=== PATIENT | male | born 1970 | race Caucasian/White ===

== ENCOUNTER 2021-10-06 14:14 | Inpatient (IN) | payer MEDICARE, OTHER ==
[~2021-10-06] VITALS: Ht 172.7 cm; Wt 77.4 kg
[~2021-10-06 14:14] MED LIST: LIDOcaine 2% (20 mg/ml) 5ml cardiac syringe ONE; MAGNESIUM SULFATE 4 MEQ/ML (5gm/10ml) injection ONE; NORepinephrine 1 mg/ml inj IV ONE; albumin (human) 25% 100 ML IV solution IV ONE; aminocaproic acid 250 MG/1 ML inj. ONE; calcium chloride 100 MG/1 ML inj IV ONE; heparin 1,000 units/ml 10ml inj ONE; heparin 10,000 units/1 ML INJ ONE; mannitol 12.5gm/50mL VIAL IV ONE; methylPREDNISolone sod succ 1000mg vial ONE; potassium Cl 2 mEq/ml inj IV ONE; sodium bicarbonate (8.4%) 1 mEq/ml syringe ONE
[2021-10-06 14:50] LABS: BASOPHILS % (AUTO) 0.3 % (0-1); EOSINOPHILS % (AUTO) 0.4 % (0-6); HEMATOCRIT 25.6 % (42.0-52.0); HEMOGLOBIN 8.4 g/dl (14.0-17.9); LYMPHOCYTES # (AUTO) 1.5 X10'3 (1.1-4.8); LYMPHOCYTES % (AUTO) 24.2 % (21-51); MEAN CORPUSCULAR HEMOGLOBIN 30.5 PG (27.0-31.0); MEAN CORPUSCULAR HGB CONC 32.9 g/dL (33.0-36.5); MEAN CORPUSCULAR VOLUME 92.8 FL (78-98); MONOCYTES # (AUTO) 0.9 X10'3 (0-0.9); MONOCYTES % (AUTO) 14.5 % (2-12); NEUTROPHILS # (AUTO) 3.7 X10'3 (1.8-7.7); NEUTROPHILS % (AUTO) 60.6 % (42-75); PLATELET COUNT 164 X10'3 (140-440); RED BLOOD COUNT 2.76 X10'6 (4.70-6.10); RED CELL DISTRIBUTION WIDTH 24.7 % (11.5-14.5); WHITE BLOOD COUNT 6.2 X10'3 (4.5-11.0)
[2021-10-06] MEDS ORDERED: vancomycin/NS 1 GM ADD-VANTAGE 250 ML IV ONE (14:50)
[2021-10-06] MEDS ORDERED: CefTRIAXone 2gm/D5W 50ml BAG 50 ML IV ONE (14:50)
[2021-10-06 15:09] LABS: ALANINE AMINOTRANSFERASE 10 U/L (12-78); ALBUMIN 2.9 G/DL (3.4-5.0); ALBUMIN/GLOBULIN RATIO 0.8 (1.1-1.5); ALKALINE PHOSPHATASE 57 IU/L (46-116); ANION GAP 13 (8-16); ASPARTATE AMINO TRANSFERASE 13 U/L (10-37); BILIRUBIN,TOTAL 0.3 MG/DL (0.1-1.0); BLOOD UREA NITROGEN 6 MG/DL (7-18); BUN/CREATININE RATIO 5.7 (5.4-32.0); CALCIUM 8.2 MG/DL (8.5-10.1); CHLORIDE 109 MMOL/L (99-107); CREATININE 1.06 MG/DL (0.60-1.10); GLUCOSE 83 MG/DL (70-104); MAGNESIUM 1.9 MG/DL (1.5-2.4); SODIUM 146 MMOL/L (135-145); TOTAL CARBON DIOXIDE 23.6 MMOL/L (24-32); TOTAL PROTEIN 6.4 G/DL (6.4-8.2); eGFR 73 ML/MIN
[2021-10-06 15:15] LABS: POTASSIUM 2.6 MMOL/L (3.5-5.1)
[2021-10-06 15:17] LABS: ANISOCYTOSIS 3+; PLATELET ESTIMATE NORMAL
[2021-10-06 15:19] LABS: ELLIPTOCYTES FEW; HYPOCHROMASIA 1+; POLYCHROMASIA FEW; TARGET CELLS FEW
[2021-10-06] MEDS ORDERED: potassium Cl 10 mEq/100mL bag IV ONE (15:25)
[2021-10-06] MEDS ORDERED: potassium Cl 20 mEq SR tablet PO ONE (15:25)
[2021-10-06] MEDS ORDERED: normal saline 1000ML IV soln IV ONE (15:25)
[2021-10-06] MEDS ORDERED: morphine 4 MG/ML inj SYRINge IV ONE ×2 (16:00→19:05)
[2021-10-06 16:46] LABS: CLARITY,URINE CLEAR (Clear); GLUCOSE, URINE NEGATIVE (Neg); KETONES,URINE NEGATIVE (Neg); LEUKOCYTE ESTERASE ,URINE NEGATIVE (Neg); NITRITES, URINE NEGATIVE (Neg); OCCULT BLOOD,URINE NEGATIVE (Neg); PH,URINE 5.5 (4.8-8.0); PROTEIN,URINE NEGATIVE (Neg); UROBILINOGEN,URINE 0.2 E.U/dL (0.2-1.0)
[2021-10-06 16:55] LABS: COLOR,URINE STRAW (Yellow); UA COLLECTION TYPE NON-SPECIFIED
[2021-10-06] MEDS ORDERED: mag hydrox/Alum hydrox/simeth 30ml oral suspension PO PRN (17:00)
[2021-10-06] MEDS ORDERED: magnesium 2GM in 50ml NS 50 ML IV PRN (17:00)
[2021-10-06] MEDS ORDERED: POTASSIUM BICARB 20meq eff tab 20 MEQ TABLET.EFF PO PRN (17:00)
[2021-10-06] MEDS ORDERED: magnesium hydroxide 30ml (MOM) UD suspension PO PRN (17:00)
[2021-10-06] MEDS ORDERED: acetaminophen 325mg tablet PO PRN (17:00)
[2021-10-06] MEDS ORDERED: magnesium Cl slow-release 64mg tablet PO PRN (17:00)
[2021-10-06] MEDS ORDERED: magnesium 4gm in 100ml NS 100 ML IV PRN (17:00)
[2021-10-06] MEDS ORDERED: ondansetron/PF 4mg/2ml inj IV PRN (17:00)
[2021-10-06] MEDS ORDERED: VANCOmycin 2,000MG in NS 500ml IV soln IV ONE (17:30)
--- NOTE | 2021-10-06 17:45 | NUR ---
PATIENT IS AWAKE, ALERT AND ORIENTEDX4. ON ROOM AIR, NO FORM OF DISTRESS NOTED. SR/SB ON MONITOR, BP IS STABLE. ADMITTED WITH ENDOCARDITIS. LACTATE 5, AND TRENDING DOWN. BL/URINE CX ALL SENT. TOOK MULTIPLE ATTEMPTS WITH SEVERAL STAFF MEMBERS TO PLACE IV ACCESS ON THIS PATIENT. HE NOW HAS 2 WORKING IVs. NS BOLUS/IV ABX/K+ ALL INFUSING ORDERED. MEDICATED FOR GENERALIZED PAIN ORDERED (2MG MORPHINE). MONTORING ONGOING
[2021-10-06] MEDS: potassium CL 10mEq/100ml bag 100 ML IV PRN ×3 (17:50→20:02)
[2021-10-06 18:19] LABS: POTASSIUM 3.3 MMOL/L (3.5-5.1)
[2021-10-06] MEDS ORDERED: haloperidol lactate 5mg/ml inj IM PRN (18:20)
[2021-10-06] MEDS ORDERED: dextrose 50%-water 50ml dispensing syringe IV PRN (18:20)
[2021-10-06] MEDS ORDERED: LORazepam 2 mg/ml vial IV PRN (18:20)
[2021-10-06] MEDS ORDERED: haloperidol 5mg tablet PO PRN (18:20)
[2021-10-06] MEDS: K and/or MAG REPLACEMENT MC SCH (20:00)
[2021-10-06] MEDS ORDERED: nitroGLYCERIN 1gm ointment UD TP PRN (20:15)
[2021-10-06] MEDS: enoxaparin 30mg/0.3ml syringe SQ SCH (20:45)
[2021-10-06] MEDS: docusate sod 100mg capsule PO SCH (20:50)
[2021-10-06] MEDS: thiamine 100mg/ml 2ml inj. IV SCH (21:16)
[2021-10-07] VITALS (9 sets, daily range): BP systolic 124–156; BP diastolic 67–95
--- NOTE | 2021-10-07 02:24 | NUR ---
Pt complaining of chest pain 10/[address] Acosta she ordered 2mg morphine.
[2021-10-07] MEDS: morphine 2 MG/ML inj. syringe IV PRN ×5 (02:58→23:07)
--- NOTE | 2021-10-07 03:02 | NUR ---
Spoke with patient and he wants to be full code as the order states. He does not want to be DNR as the Dr's note states.
[2021-10-07] MEDS: POTASSIUM BICARB 20meq eff tab 20 MEQ TABLET.EFF PO PRN (03:24)
--- NOTE | 2021-10-07 03:30 | NUR ---
Pt HR dropping into the high 30's spoke with medical charge entry specialist Stacy and she suggested we wipe off the Nitro-BID BP 128/95. HR is now up in the 40's and 50's.
[2021-10-07] MEDS ORDERED: vancomycin/NS 1 GM ADD-VANTAGE 250 ML IV SCH (04:00)
--- NOTE | 2021-10-07 05:14 | NUR ---
Notified Dr. Acosta that the patient's HR dropping as low as 37 and trending mid40's to 60's. No new orders at this time.
--- NOTE | 2021-10-07 06:32 | NUR ---
Problems reprioritized. Patient report given, questions answered & plan of care reviewed with JAIME Sher.
--- NOTE | 2021-10-07 07:01 | NUR ---
Patient in room PCU 3014. I have received report from Daja and had the opportunity to ask questions and assume patient care.
[2021-10-07 07:14] LABS: BASOPHILS % (AUTO) 0.7 % (0-1); EOSINOPHILS # (AUTO) 0.1 X10'3 (0-0.9); EOSINOPHILS % (AUTO) 1.7 % (0-6); HEMATOCRIT 29.4 % (42.0-52.0); HEMOGLOBIN 9.5 g/dl (14.0-17.9); LYMPHOCYTES % (AUTO) 41.9 % (21-51); MEAN CORPUSCULAR HEMOGLOBIN 30.4 PG (27.0-31.0); MEAN CORPUSCULAR HGB CONC 32.1 g/dL (33.0-36.5); MEAN CORPUSCULAR VOLUME 94.8 FL (78-98); MEAN PLATELET VOLUME 9.5 FL (7.4-10.4); MONOCYTES # (AUTO) 1.3 X10'3 (0-0.9); NEUTROPHILS # (AUTO) 2.7 X10'3 (1.8-7.7); NEUTROPHILS % (AUTO) 37.7 % (42-75); PLATELET COUNT 169 X10'3 (140-440); RED BLOOD COUNT 3.11 X10'6 (4.70-6.10); RED CELL DISTRIBUTION WIDTH 25.3 % (11.5-14.5); WHITE BLOOD COUNT 7.2 X10'3 (4.5-11.0)
[2021-10-07 07:42] LABS: ANION GAP 11 (8-16); BLOOD UREA NITROGEN 4 MG/DL (7-18); BUN/CREATININE RATIO 4.2 (5.4-32.0); CHLORIDE 114 MMOL/L (99-107); CREATININE 0.96 MG/DL (0.60-1.10); GLUCOSE 81 MG/DL (70-104); POTASSIUM 3.6 MMOL/L (3.5-5.1); SODIUM 149 MMOL/L (135-145); TOTAL CARBON DIOXIDE 24.5 MMOL/L (24-32)
[2021-10-07 07:43] LABS: ALBUMIN 2.8 G/DL (3.4-5.0); CALCIUM 8.1 MG/DL (8.5-10.1); eGFR 82 ML/MIN
[2021-10-07] MEDS: K and/or MAG REPLACEMENT MC SCH ×2 (08:00→18:54)
[2021-10-07] MEDS: CefTRIAXone 2gm/D5W 50ml BAG 50 ML IV SCH (08:21)
[2021-10-07] MEDS: enoxaparin 30mg/0.3ml syringe SQ SCH ×2 (08:22→19:05)
[2021-10-07] MEDS: thiamine 100mg/ml 2ml inj. IV SCH ×3 (08:23→23:07)
[2021-10-07] MEDS: docusate sod 100mg capsule PO SCH ×2 (08:24→19:05)
[2021-10-07 08:41] LABS: TOTAL CELLS COUNTED 100
--- NOTE | 2021-10-07 08:41 | NUR ---
PAGER ID: [phone] MESSAGE: JAIME Sher, [facility], [id number], Re: [phone], Juan Manuel, pt does not want to be DNR, wants to be Full Code, thank you
[2021-10-07 08:43] LABS: ANISOCYTOSIS 3+; PLATELET ESTIMATE NORMAL; SMUDGE CELLS 1+
[2021-10-07 08:45] LABS: HYPOCHROMASIA 1+; TARGET CELLS 1+
[2021-10-07] MEDS: folic acid 1mg/0.2ml inj IV SCH ×2 (10:04→14:49)
[2021-10-07] MEDS ORDERED: NO HOME MEDS (10:13)
[2021-10-07] MEDS ORDERED: iohexol 350MG/ML 100ml bottle IV ONE (12:23)
[2021-10-07 12:31] LABS: URINE AMPHETAMINE SCREEN NEGATIVE (Neg); URINE BARBITUATE SCREEN NEGATIVE (Neg); URINE BENZODIAZEPINES SCREEN POSITIVE (Neg); URINE CANNABINOID SCREEN NEGATIVE (Neg); URINE COCAINE SCREEN NEGATIVE (Neg); URINE METHADONE SCREEN NEGATIVE (Neg); URINE OPIATE SCREEN POSITIVE (Neg); URINE PHENCYCLIDINE SCREEN NEGATIVE (Neg)
[2021-10-07] MEDS: vancomycin/NS 1 GM ADD-VANTAGE 250 ML IV SCH (17:00)
--- NOTE | 2021-10-07 18:29 | NUR ---
Pt had CT of chest, abdomen, pelvis with contrast. Tolerated heart healthy diet. Received morphine 2 mg IV x2. 2D Echo done. Problems reprioritized. Patient report given, questions answered & plan of care reviewed with JAIME Farnsworth.
[2021-10-08 02:00] VITALS: BP 146/63
[2021-10-08] MEDS ORDERED: VANCOMYCIN LEVEL IV ONE ×2 (03:30→15:30)
[2021-10-08] MEDS: morphine 2 MG/ML inj. syringe IV PRN ×5 (04:04→21:30)
[2021-10-08] MEDS: vancomycin/NS 1 GM ADD-VANTAGE 250 ML IV SCH ×2 (04:32→16:12)
[2021-10-08 06:00] VITALS: BP 148/82
--- NOTE | 2021-10-08 06:46 | NUR ---
Problems reprioritized. Patient report given, questions answered & plan of care reviewed with JAIME Sher.
[2021-10-08 07:21] LABS: BASOPHILS # (AUTO) 0.1 X10'3 (0-0.2); BASOPHILS % (AUTO) 0.7 % (0-1); EOSINOPHILS # (AUTO) 0.2 X10'3 (0-0.9); EOSINOPHILS % (AUTO) 2.4 % (0-6); HEMATOCRIT 27.1 % (42.0-52.0); HEMOGLOBIN 8.8 g/dl (14.0-17.9); LYMPHOCYTES # (AUTO) 2.7 X10'3 (1.1-4.8); LYMPHOCYTES % (AUTO) 34.2 % (21-51); MEAN CORPUSCULAR HEMOGLOBIN 30.4 PG (27.0-31.0); MEAN CORPUSCULAR HGB CONC 32.6 g/dL (33.0-36.5); MEAN CORPUSCULAR VOLUME 93.4 FL (78-98); MEAN PLATELET VOLUME 9.7 FL (7.4-10.4); MONOCYTES # (AUTO) 1.4 X10'3 (0-0.9); MONOCYTES % (AUTO) 17.7 % (2-12); NEUTROPHILS # (AUTO) 3.5 X10'3 (1.8-7.7); PLATELET COUNT 189 X10'3 (140-440); RED CELL DISTRIBUTION WIDTH 25.3 % (11.5-14.5); WHITE BLOOD COUNT 7.9 X10'3 (4.5-11.0)
[2021-10-08] MEDS: K and/or MAG REPLACEMENT MC SCH ×2 (08:00→20:00)
[2021-10-08 08:01] LABS: ALBUMIN 2.5 G/DL (3.4-5.0); ANION GAP 11 (8-16); BLOOD UREA NITROGEN 5 MG/DL (7-18); BUN/CREATININE RATIO 5.1 (5.4-32.0); CHLORIDE 110 MMOL/L (99-107); CREATININE 0.98 MG/DL (0.60-1.10); GLUCOSE 102 MG/DL (70-104); POTASSIUM 3.3 MMOL/L (3.5-5.1); SODIUM 146 MMOL/L (135-145); TOTAL CARBON DIOXIDE 25.3 MMOL/L (24-32); eGFR 80 ML/MIN
[2021-10-08] MEDS: thiamine 100mg/ml 2ml inj. IV SCH ×3 (08:22→20:03)
[2021-10-08] MEDS: enoxaparin 30mg/0.3ml syringe SQ SCH ×2 (08:22→20:04)
[2021-10-08] MEDS: docusate sod 100mg capsule PO SCH ×2 (08:23→20:00)
[2021-10-08] MEDS: CefTRIAXone 2gm/D5W 50ml BAG 50 ML IV SCH (09:16)
[2021-10-08 10:17] LABS: ANISOCYTOSIS 3+; PLATELET ESTIMATE NORMAL
[2021-10-08 10:18] LABS: ELLIPTOCYTES FEW; TARGET CELLS 1+
[2021-10-08 10:51] VITALS: BP 141/54
[2021-10-08] MEDS: POTASSIUM BICARB 20meq eff tab 20 MEQ TABLET.EFF PO PRN ×3 (11:21→20:04)
--- NOTE | 2021-10-08 17:45 | NUR ---
Pt began going through withdrawals, ativan 1mg IV given x1, ativan 2 mg IV given x1. Pt having anxiety, restlessness, headache, nausea, itching. Pt received morphine 2 mg IV x 3 today, for chronic chest pain, pt baseline pain level 5-6/10. Able to get pain to 5/10 and 6/10 today.
[2021-10-08 18:00] VITALS: BP 148/85
[2021-10-08] MEDS ORDERED: LORazepam 2 mg/ml vial IV PRN (18:20)
--- NOTE | 2021-10-08 19:00 | NUR ---
Problems reprioritized. Patient report given, questions answered & plan of care reviewed with JAIME Farnsworth.
[2021-10-08] MEDS: LORazepam 1 MG tablet PO PRN ×2 (20:03→21:29)
[2021-10-08 21:28] VITALS: BP 132/73
--- NOTE | 2021-10-08 21:37 | NUR ---
Pt complaining of 8/10 pain and was complaining of agitation. Pt fell asleep while I was administering the morphine. I will be holding the Ativan right now since patient has no tremors and is not visibly agitated and is resting with eyes closed with light on Pt respiration are 18 at 99% O2 saturation on RA
[2021-10-08 22:00] VITALS: BP 147/85
[2021-10-09] VITALS (8 sets, daily range): BP systolic 101–157; BP diastolic 55–87
[2021-10-09] MEDS: vancomycin/NS 1 GM ADD-VANTAGE 250 ML IV SCH ×2 (03:52→15:57)
[2021-10-09] MEDS: morphine 2 MG/ML inj. syringe IV PRN ×5 (03:52→22:58)
[2021-10-09] MEDS: LORazepam 1 MG tablet PO PRN ×5 (04:51→23:42)
--- NOTE | 2021-10-09 06:27 | NUR ---
Problems reprioritized. Patient report given, questions answered & plan of care reviewed with JAIME Pablo.
[2021-10-09 06:46] LABS: BASOPHILS % (AUTO) 0.6 % (0-1); EOSINOPHILS # (AUTO) 0.2 X10'3 (0-0.9); EOSINOPHILS % (AUTO) 3.1 % (0-6); HEMATOCRIT 26.6 % (42.0-52.0); HEMOGLOBIN 8.6 g/dl (14.0-17.9); LYMPHOCYTES # (AUTO) 2.4 X10'3 (1.1-4.8); LYMPHOCYTES % (AUTO) 29.9 % (21-51); MEAN CORPUSCULAR HEMOGLOBIN 30.4 PG (27.0-31.0); MEAN CORPUSCULAR HGB CONC 32.5 g/dL (33.0-36.5); MEAN CORPUSCULAR VOLUME 93.5 FL (78-98); MEAN PLATELET VOLUME 10.4 FL (7.4-10.4); MONOCYTES # (AUTO) 1.4 X10'3 (0-0.9); MONOCYTES % (AUTO) 17.8 % (2-12); NEUTROPHILS # (AUTO) 3.9 X10'3 (1.8-7.7); NEUTROPHILS % (AUTO) 48.6 % (42-75); PLATELET COUNT 202 X10'3 (140-440); RED BLOOD COUNT 2.84 X10'6 (4.70-6.10); RED CELL DISTRIBUTION WIDTH 24.5 % (11.5-14.5); WHITE BLOOD COUNT 7.9 X10'3 (4.5-11.0)
[2021-10-09 07:07] LABS: ALBUMIN 2.5 G/DL (3.4-5.0); ANION GAP 8 (8-16); BLOOD UREA NITROGEN 6 MG/DL (7-18); BUN/CREATININE RATIO 7.1 (5.4-32.0); CALCIUM 7.9 MG/DL (8.5-10.1); CHLORIDE 108 MMOL/L (99-107); CREATININE 0.84 MG/DL (0.60-1.10); GLUCOSE 121 MG/DL (70-104); POTASSIUM 3.6 MMOL/L (3.5-5.1); SODIUM 142 MMOL/L (135-145); TOTAL CARBON DIOXIDE 26.4 MMOL/L (24-32); eGFR > 90 ML/MIN
[2021-10-09] MEDS: K and/or MAG REPLACEMENT MC SCH ×2 (07:13→19:08)
[2021-10-09] MEDS: enoxaparin 30mg/0.3ml syringe SQ SCH ×2 (09:40→20:22)
[2021-10-09] MEDS: thiamine 100mg/ml 2ml inj. IV SCH ×2 (09:40→13:51)
[2021-10-09] MEDS: folic acid 1mg/0.2ml inj IV SCH (09:40)
[2021-10-09] MEDS: diphenhydrAMINE 25mg capsule PO PRN ×2 (09:41→17:13)
[2021-10-09] MEDS: docusate sod 100mg capsule PO SCH ×2 (09:41→20:22)
[2021-10-09] MEDS: CefTRIAXone 2gm/D5W 50ml BAG 50 ML IV SCH (09:47)
[2021-10-09 10:46] LABS: PRE OP PARTIAL THROMB. TIME 28 SECONDS (22-32)
--- NOTE | 2021-10-09 18:39 | NUR ---
Patient in room PCU 3014B. I have received report from JAIME Pablo and had the opportunity to ask questions and assume patient care.
--- NOTE | 2021-10-09 18:57 | NUR ---
Problems reprioritized. Patient report given, questions answered & plan of care reviewed with JAIME HAGEN.
[2021-10-10 02:00] VITALS: BP 116/65
[2021-10-10] MEDS: LORazepam 1 MG tablet PO PRN ×3 (03:41→15:04)
[2021-10-10] MEDS: morphine 2 MG/ML inj. syringe IV PRN ×2 (03:41→07:50)
[2021-10-10] MEDS: vancomycin/NS 1 GM ADD-VANTAGE 250 ML IV SCH ×2 (03:42→16:27)
[2021-10-10] MEDS: diphenhydrAMINE 25mg capsule PO PRN (03:46)
[2021-10-10 06:25] LABS: BASOPHILS # (AUTO) 0.1 X10'3 (0-0.2); EOSINOPHILS # (AUTO) 0.3 X10'3 (0-0.9); HEMATOCRIT 28.1 % (42.0-52.0); HEMOGLOBIN 9.1 g/dl (14.0-17.9); LYMPHOCYTES # (AUTO) 2.3 X10'3 (1.1-4.8); LYMPHOCYTES % (AUTO) 31.9 % (21-51); MEAN CORPUSCULAR HEMOGLOBIN 30.3 PG (27.0-31.0); MEAN CORPUSCULAR HGB CONC 32.2 g/dL (33.0-36.5); MEAN PLATELET VOLUME 10.2 FL (7.4-10.4); MONOCYTES # (AUTO) 1.6 X10'3 (0-0.9); MONOCYTES % (AUTO) 22.4 % (2-12); NEUTROPHILS # (AUTO) 2.9 X10'3 (1.8-7.7); NEUTROPHILS % (AUTO) 40.7 % (42-75); PLATELET COUNT 214 X10'3 (140-440); RED BLOOD COUNT 2.99 X10'6 (4.70-6.10); RED CELL DISTRIBUTION WIDTH 24.9 % (11.5-14.5); WHITE BLOOD COUNT 7.2 X10'3 (4.5-11.0)
[2021-10-10 06:41] LABS: ALBUMIN 2.6 G/DL (3.4-5.0); ANION GAP 10 (8-16); BLOOD UREA NITROGEN 6 MG/DL (7-18); BUN/CREATININE RATIO 6.5 (5.4-32.0); CALCIUM 7.8 MG/DL (8.5-10.1); CHLORIDE 106 MMOL/L (99-107); CREATININE 0.92 MG/DL (0.60-1.10); GLUCOSE 120 MG/DL (70-104); POTASSIUM 3.4 MMOL/L (3.5-5.1); SODIUM 141 MMOL/L (135-145); TOTAL CARBON DIOXIDE 25.5 MMOL/L (24-32); eGFR 86 ML/MIN
--- NOTE | 2021-10-10 06:45 | NUR ---
Problems reprioritized. Patient report given, questions answered & plan of care reviewed with JAIME Mcadams.
[2021-10-10 07:00] VITALS: BP 121/71
[2021-10-10] MEDS ORDERED: magnesium Cl slow-release 64mg tablet PO PRN (07:40)
[2021-10-10] MEDS ORDERED: magnesium 4gm in 100ml NS 100 ML IV PRN (07:40)
[2021-10-10] MEDS ORDERED: potassium CL 10mEq/100ml bag 100 ML IV PRN (07:40)
[2021-10-10] MEDS ORDERED: POTASSIUM BICARB 20meq eff tab 20 MEQ TABLET.EFF PO PRN (07:40)
[2021-10-10] MEDS ORDERED: magnesium 2GM in 50ml NS 50 ML IV PRN (07:40)
[2021-10-10] MEDS: CefTRIAXone 2gm/D5W 50ml BAG 50 ML IV SCH (07:48)
[2021-10-10] MEDS: docusate sod 100mg capsule PO SCH ×2 (07:48→19:50)
[2021-10-10] MEDS: K and/or MAG REPLACEMENT MC SCH ×2 (07:48→20:00)
[2021-10-10] MEDS: enoxaparin 30mg/0.3ml syringe SQ SCH (07:49)
[2021-10-10] MEDS: POTASSIUM BICARB 20meq eff tab 20 MEQ TABLET.EFF PO PRN ×3 (07:49→19:50)
[2021-10-10] MEDS ORDERED: folic acid 1mg tablet PO SCH (08:00)
[2021-10-10 09:01] LABS: ANISOCYTOSIS 3+; PLATELET ESTIMATE NORMAL
[2021-10-10 09:02] LABS: HYPOCHROMASIA 2+; TARGET CELLS 1+
[2021-10-10 09:03] LABS: BURR CELLS FEW
[2021-10-10 09:04] LABS: ELLIPTOCYTES FEW
--- NOTE | 2021-10-10 09:36 | NUR ---
Initial: Pt admitted w/ sepsis secondary to endocarditis, and mitral/aortic regurgitation per EMR, may be getting surgery per MD note. Currently on Heart Healthy diet w/ mostly 75-100% intake of meals though only partially meeting protein needs. Will provide double protein BID to assist w/ meeting increased needs. LBM 10/09 receiving routine colace. Will continue to monitor. Recs: 1. Continue Heart Healthy diet as tolerated 2. Double protein BIDBD 3. Bowel care per rx 4. Weekly wts Addendum: 10/10/21 at [address] Amended: Links added.
[2021-10-10 11:00] VITALS: BP 143/42
[2021-10-10] MEDS ORDERED: MESSAGE TO NURSING PO ONE ×4 (11:05)
[2021-10-10] MEDS ORDERED: HYDROmorphone 2mg tablet PO PRN (11:15)
[2021-10-10] MEDS: HYDROmorphone 1 mg/ml syringe IV PRN ×3 (12:25→21:32)
[2021-10-10 12:26] LABS: HEMOGLOBIN A1C 5.3 % (4.5-6.2)
[2021-10-10 13:03] LABS: UA COLLECTION TYPE CLN CATCH MIDSTREAM
[2021-10-10 13:04] LABS: CLARITY,URINE CLEAR (Clear); COLOR,URINE YELLOW (Yellow); GLUCOSE, URINE NEGATIVE (Neg); KETONES,URINE NEGATIVE (Neg); LEUKOCYTE ESTERASE ,URINE NEGATIVE (Neg); NITRITES, URINE NEGATIVE (Neg); OCCULT BLOOD,URINE NEGATIVE (Neg); PH,URINE 6.5 (4.8-8.0); PROTEIN,URINE NEGATIVE (Neg); UROBILINOGEN,URINE 0.2 E.U/dL (0.2-1.0)
--- NOTE | 2021-10-10 13:04 | NUR ---
vascular and respiratory paged for prep for surgery
[2021-10-10] MEDS ORDERED: albuterol 2.5 MG/3 ML nebule NEB ONE (13:10)
[2021-10-10 13:20] LABS: ABG BASE EXCESS 2.7 mmol/L (-2.0-2.0); ABG HCO3 26.5 mmol/L (22.0-26.0); ABG OXYGEN SATURATION 94.3 % (94-97); ABG PCO2 (T) 38.1 mmHg (35.0-48.0); ABG PO2 (T) 71.6 mmHg (75.0-100.0); ALLEN'S TEST POSITIVE; FCOHb 0.3 % (0.0-3.9); FMetHb 0.3 % (0.0-1.5); FO2Hb 93.7 % (94-97); TOTAL HEMOGLOBIN 10.1 G/dl (14.0-18.0)
[2021-10-10 15:00] VITALS: BP 121/73
--- NOTE | 2021-10-10 15:28 | NUR ---
per Jonas Gill ok that ancef is not ordered he does not want it cleocin has been ordered by provider instead
[2021-10-10 18:00] VITALS: BP 125/67
[2021-10-10] MEDS ORDERED: LORazepam 1 MG tablet PO PRN (18:20)
[2021-10-10] MEDS ORDERED: LORazepam 2 mg/ml vial IV PRN (18:20)
--- NOTE | 2021-10-10 18:42 | NUR ---
report given to Monique SANDOVAL
[2021-10-10] MEDS ORDERED: ringers solution, lacted 1,000 ML IV ONE (18:45)
[2021-10-10 22:00] VITALS: BP 129/73
[2021-10-11] VITALS (18 sets, daily range): BP systolic 93–144; BP diastolic 58–92
[2021-10-11] MEDS: HYDROmorphone 1 mg/ml syringe IV PRN (02:28)
[2021-10-11] MEDS: vancomycin/NS 1 GM ADD-VANTAGE 250 ML IV SCH ×2 (04:55→19:47)
[2021-10-11] MEDS ORDERED: MALTODEXTRIN/FRUCTOSE 0.68 KCAL/ML LIQUID 296ML BOTTLE PO ONE (05:00)
[2021-10-11] MEDS ORDERED: ceFAZolin 1000mg inj ONE (05:29)
[2021-10-11] MEDS ORDERED: LORazepam 2 mg/ml vial IV ONE (06:00)
[2021-10-11] MEDS ORDERED: famotidine 20mg tablet PO ONE (06:00)
--- NOTE | 2021-10-11 06:15 | NUR ---
Patient in room PCU 3014. I have received report from Monique SANDOVAL and had the opportunity to ask questions and assume patient care.Patient is resting in bed in no acute distress.
[2021-10-11] MEDS ORDERED: bacitracin 15gm ointment TP ONE (06:30)
[2021-10-11] MEDS ORDERED: etomidate 2mg/ml inj. ONE ×2 (07:00→08:20)
[2021-10-11] MEDS ORDERED: dextrose 50%-water 50ml dispensing syringe IV PRN ×2 (07:00→14:50)
[2021-10-11] MEDS ORDERED: insulin Lispro (HumaLOG) vial - multi-dose SQ PRN (07:00)
[2021-10-11] MEDS ORDERED: nitroGLYCERIN in D5W 50mg/250ml (Tridil) infusion IV ONE (07:00)
[2021-10-11] MEDS ORDERED: protamine sulf. 10mg/ml inj. IV ONE (07:00)
[2021-10-11] MEDS ORDERED: sevoflurane 250ml liquid IH ONE (07:00)
[2021-10-11] MEDS ORDERED: Insulin Reg/NS 100units/100mL 100 ML IV SCH ×2 (07:00→14:50)
[2021-10-11] MEDS ORDERED: clindamycin-Cleocin 900mg/D5W 50 ML IV ONE (07:00)
--- NOTE | 2021-10-11 07:08 | NUR ---
patient picked up by [facility] staff for heart surgery
[2021-10-11] MEDS ORDERED: MIDAZolam 1mg/ml 10ml vial ONE (07:12)
[2021-10-11] MEDS ORDERED: fentaNYL /PF 50mcg/ml 5ml ampule ONE ×3 (07:13)
[2021-10-11 07:31] LABS: EOSINOPHILS # (AUTO) 0.2 X10'3 (0-0.9); MEAN CORPUSCULAR HEMOGLOBIN 30.5 PG (27.0-31.0); MEAN PLATELET VOLUME 10.9 FL (7.4-10.4)
[2021-10-11 07:34] LABS: BASOPHILS % (AUTO) 0.4 % (0-1); EOSINOPHILS % (AUTO) 2.9 % (0-6); LYMPHOCYTES # (AUTO) 3.1 X10'3 (1.1-4.8); LYMPHOCYTES % (AUTO) 39.6 % (21-51); MEAN CORPUSCULAR HGB CONC 32.2 g/dL (33.0-36.5); MEAN CORPUSCULAR VOLUME 94.7 FL (78-98); MONOCYTES # (AUTO) 1.5 X10'3 (0-0.9); MONOCYTES % (AUTO) 19.6 % (2-12); NEUTROPHILS # (AUTO) 2.9 X10'3 (1.8-7.7); NEUTROPHILS % (AUTO) 37.5 % (42-75); PLATELET COUNT 256 X10'3 (140-440); RED BLOOD COUNT 3.27 X10'6 (4.70-6.10); RED CELL DISTRIBUTION WIDTH 25.1 % (11.5-14.5); WHITE BLOOD COUNT 7.8 X10'3 (4.5-11.0)
[2021-10-11 07:46] LABS: ANION GAP 10 (8-16); BLOOD UREA NITROGEN 11 MG/DL (7-18); BUN/CREATININE RATIO 11.7 (5.4-32.0); CALCIUM 8.5 MG/DL (8.5-10.1); CHLORIDE 105 MMOL/L (99-107); CREATININE 0.94 MG/DL (0.60-1.10); GLUCOSE 118 MG/DL (70-104); POTASSIUM 3.9 MMOL/L (3.5-5.1); SODIUM 142 MMOL/L (135-145); TOTAL CARBON DIOXIDE 26.6 MMOL/L (24-32); eGFR 84 ML/MIN
[2021-10-11 07:47] LABS: ALBUMIN 2.9 G/DL (3.4-5.0)
[2021-10-11] MEDS: CefTRIAXone 2gm/D5W 50ml BAG 50 ML IV SCH (08:00)
[2021-10-11] MEDS: thiamine 100mg tablet PO SCH (08:00)
[2021-10-11] MEDS ORDERED: rocuronium 10mg/ml inj IV ONE ×4 (08:20→11:11)
[2021-10-11 08:21] LABS: ABG BASE EXCESS 2.9 mmol/L (-2.0-2.0); ABG HCO3 27.6 mmol/L (22.0-26.0); ABG OXYGEN SATURATION 99.9 % (94-97); ABG PCO2 42.8 mmHg (35.0-48.0); ABG PO2 254.5 mmHg (75.0-100.0); CL (ABG) 103 mmol/L (98-110); FCOHb 0.8 % (0.0-3.9); FMetHb 0.3 % (0.0-1.5); FO2Hb 98.8 % (94-97); GLUCOSE (ABG) 84 mg/dl (70-105); K (ABG) 3.8 mmol/L (3.5-5.0); TOTAL HEMOGLOBIN 9.1 G/dl (14.0-18.0)
[2021-10-11 09:51] LABS: ABG HCO3 28.5 mmol/L (22.0-26.0); ABG OXYGEN SATURATION 99.7 % (94-97); ABG PCO2 55.7 mmHg (35.0-48.0); ABG PO2 526.4 mmHg (75.0-100.0); CL (ABG) 103 mmol/L (98-110); FCOHb 1.2 % (0.0-3.9); FMetHb 0.3 % (0.0-1.5); FO2Hb 98.2 % (94-97); GLUCOSE (ABG) 145 mg/dl (70-105); IONIZED CA (ABG) 1.01 mmol/L (1.10-1.43); K (ABG) 5.5 mmol/L (3.5-5.0); TOTAL HEMOGLOBIN 8.2 G/dl (14.0-18.0)
[2021-10-11] MEDS ORDERED: MESSAGE TO NURSING PO ONE (10:00)
[2021-10-11 10:11] LABS: ABG BASE EXCESS VENOUS -0.7 mmol/L (-2.0 - 2.0); ABG HCO3 VENOUS 26.1 mmol/L (21.0-28.0); ABG PO2 VENOUS 51.9 mmHg (25.0-35.0); CL (ABG) 103 mmol/L (98-110); FMetHb VENOUS 0.3 % (0.0 - 0.5); FO2Hb VENOUS 80.7 %; GLUCOSE (ABG) 178 mg/dl (70-105); IONIZED CA (ABG) 0.99 mmol/L (1.10-1.43); K (ABG) 5.2 mmol/L (3.5-5.0); TOTAL HEMOGLOBIN 9.3 G/dl (14.0-18.0)
[2021-10-11 10:31] LABS: ABG BASE EXCESS -0.1 mmol/L (-2.0-2.0); ABG PCO2 42.8 mmHg (35.0-48.0); ABG PO2 311.1 mmHg (75.0-100.0); CL (ABG) 103 mmol/L (98-110); FCOHb 1.1 % (0.0-3.9); FMetHb 0.3 % (0.0-1.5); FO2Hb 98.6 % (94-97); GLUCOSE (ABG) 182 mg/dl (70-105); K (ABG) 5.3 mmol/L (3.5-5.0); TOTAL HEMOGLOBIN 9.3 G/dl (14.0-18.0)
[2021-10-11 11:19] LABS: ABG BASE EXCESS -5.5 mmol/L (-2.0-2.0); ABG HCO3 21.6 mmol/L (22.0-26.0); ABG OXYGEN SATURATION 99.9 % (94-97); ABG PCO2 50.8 mmHg (35.0-48.0); ABG PO2 297.7 mmHg (75.0-100.0); CL (ABG) 105 mmol/L (98-110); FCOHb 0.8 % (0.0-3.9); FMetHb 0.3 % (0.0-1.5); FO2Hb 98.8 % (94-97); GLUCOSE (ABG) 190 mg/dl (70-105); IONIZED CA (ABG) 1.03 mmol/L (1.10-1.43); K (ABG) 4.5 mmol/L (3.5-5.0); TOTAL HEMOGLOBIN 9.2 G/dl (14.0-18.0)
[2021-10-11 11:59] LABS: ABG BASE EXCESS -1.9 mmol/L (-2.0-2.0); ABG HCO3 21.3 mmol/L (22.0-26.0); ABG OXYGEN SATURATION 99.7 % (94-97); ABG PCO2 30.2 mmHg (35.0-48.0); ABG PO2 300.5 mmHg (75.0-100.0); CL (ABG) 106 mmol/L (98-110); FCOHb 0.8 % (0.0-3.9); FMetHb 0.3 % (0.0-1.5); FO2Hb 98.6 % (94-97); GLUCOSE (ABG) 194 mg/dl (70-105); IONIZED CA (ABG) 0.97 mmol/L (1.10-1.43); TOTAL HEMOGLOBIN 8.9 G/dl (14.0-18.0)
[2021-10-11 12:37] LABS: ABG BASE EXCESS -1.4 mmol/L (-2.0-2.0); ABG HCO3 23.7 mmol/L (22.0-26.0); ABG OXYGEN SATURATION 99.9 % (94-97); ABG PO2 330.9 mmHg (75.0-100.0); CL (ABG) 107 mmol/L (98-110); FCOHb 0.9 % (0.0-3.9); FMetHb 0.3 % (0.0-1.5); FO2Hb 98.7 % (94-97); GLUCOSE (ABG) 193 mg/dl (70-105); IONIZED CA (ABG) 1.01 mmol/L (1.10-1.43); TOTAL HEMOGLOBIN 9.1 G/dl (14.0-18.0)
[2021-10-11] MEDS ORDERED: BUPIVAcaine/PF 2.5 mg/ml (0.25%) 30ml vial ONE (13:04)
[2021-10-11 13:15] LABS: ABG BASE EXCESS -2.4 mmol/L (-2.0-2.0); ABG HCO3 21.7 mmol/L (22.0-26.0); ABG OXYGEN SATURATION 99.7 % (94-97); ABG PCO2 34.1 mmHg (35.0-48.0); ABG PO2 442.2 mmHg (75.0-100.0); CL (ABG) 103 mmol/L (98-110); FCOHb 1.1 % (0.0-3.9); FMetHb 0.3 % (0.0-1.5); FO2Hb 98.3 % (94-97); GLUCOSE (ABG) 164 mg/dl (70-105); IONIZED CA (ABG) 1.35 mmol/L (1.10-1.43); TOTAL HEMOGLOBIN 8.2 G/dl (14.0-18.0)
[2021-10-11] MEDS ORDERED: albumin (Human) 5% 250ml 250 ML IV ONE ×3 (13:27→14:32)
[2021-10-11 13:49] LABS: ABG HCO3 VENOUS 24.2 mmol/L (21.0-28.0); ABG PCO2 VENOUS 42.2 mmHg (41.0-54.0); ABG PO2 VENOUS 48.2 mmHg (25.0-35.0); CL (ABG) 106 mmol/L (98-110); FCOHb VENOUS 1.4 %; FHHb VENOUS 21.6 %; FMetHb VENOUS 0.3 % (0.0 - 0.5); FO2Hb VENOUS 76.7 %; GLUCOSE (ABG) 138 mg/dl (70-105); IONIZED CA (ABG) 1.11 mmol/L (1.10-1.43); K (ABG) 3.8 mmol/L (3.5-5.0); TOTAL HEMOGLOBIN 9.5 G/dl (14.0-18.0)
[2021-10-11 13:52] LABS: ACTIVATED CLOTTING TIME 119 SEC (101-148)
[2021-10-11] MEDS ORDERED: ROPIVAcaine 0.2% (10 MG/5 ML) BOLUS INJECTION ERECSPINPL PRN ×2 (14:15→14:30)
[2021-10-11] MEDS ORDERED: BUPIVAcaine/PF 2.5 mg/ml (0.25%) 30ml vial IJ ONE (14:35)
[2021-10-11] MEDS ORDERED: magnesium 4gm in 100ml NS 100 ML IV PRN (14:50)
[2021-10-11] MEDS ORDERED: normal saline 250ml IV soln 250 ML IV PRN (14:50)
[2021-10-11] MEDS ORDERED: insulin glargine (Lantus) pen - multi-dose SQ PRN (14:50)
[2021-10-11] MEDS ORDERED: morphine 2 MG/ML inj. syringe IV PRN (14:50)
[2021-10-11] MEDS ORDERED: DOPamine 400mg/D5W 250ml 250 ML IV PRN (14:50)
[2021-10-11] MEDS ORDERED: albumin (Human) 5% 250ml 250 ML IV PRN (14:50)
[2021-10-11] MEDS ORDERED: Neutra Phos packet PO PRN (14:50)
[2021-10-11] MEDS ORDERED: metoclopramide 5 mg/ml inj IV PRN (14:50)
[2021-10-11] MEDS ORDERED: niCARDipine-NS 40mg/200ml IVPB 200 ML IV PRN (14:50)
[2021-10-11] MEDS ORDERED: mineral oil 133ml enema RC PRN (14:50)
[2021-10-11] MEDS ORDERED: sodium chloride 0.45% 1,000 ML IV SCH (14:50)
[2021-10-11] MEDS ORDERED: acetaminophen 325mg tablet PO PRN ×2 (14:50)
[2021-10-11] MEDS ORDERED: magnesium citrate 296ml oral solution PO PRN (14:50)
[2021-10-11] MEDS ORDERED: magnesium 2GM in 50ml NS 50 ML IV PRN (14:50)
[2021-10-11] MEDS ORDERED: potassium Cl 20 mEq SR tablet PO PRN (14:50)
[2021-10-11] MEDS ORDERED: ondansetron/PF 4mg/2ml inj IV PRN (14:50)
[2021-10-11] MEDS ORDERED: magnesium hydroxide 30ml (MOM) UD suspension PO PRN (14:50)
[2021-10-11] MEDS ORDERED: potassium CL 10mEq/100ml bag 100 ML IV PRN (14:50)
[2021-10-11] MEDS ORDERED: bisacodyl 10mg suppository rectal RC PRN (14:50)
[2021-10-11] MEDS ORDERED: sodium phosphate inj. 30 MMOL in dextrose 5%-water 250 ML IV PRN (14:50)
[2021-10-11] MEDS ORDERED: nitroGLYCERIN-Tridil 50MG/D5W 250 ML IV PRN (14:50)
[2021-10-11] MEDS ORDERED: HYDROcodone/acetaminophen 10/325mg tab PO PRN (14:50)
[2021-10-11] MEDS ORDERED: sodium phosphate inj. 15 MMOL in dextrose 5%-water 250 ML IV PRN (14:50)
[2021-10-11 15:24] LABS: BASOPHILS % (AUTO) 0.1 % (0-1); EOSINOPHILS % (AUTO) 0.6 % (0-6); HEMATOCRIT 33.8 % (42.0-52.0); HEMOGLOBIN 11.1 g/dl (14.0-17.9); LYMPHOCYTES # (AUTO) 0.6 X10'3 (1.1-4.8); LYMPHOCYTES % (AUTO) 7.1 % (21-51); MEAN CORPUSCULAR HEMOGLOBIN 30.1 PG (27.0-31.0); MEAN CORPUSCULAR HGB CONC 32.7 g/dL (33.0-36.5); MONOCYTES # (AUTO) 1.3 X10'3 (0-0.9); MONOCYTES % (AUTO) 16.1 % (2-12); NEUTROPHILS # (AUTO) 6.4 X10'3 (1.8-7.7); NEUTROPHILS % (AUTO) 76.1 % (42-75); PLATELET COUNT 97 X10'3 (140-440); RED BLOOD COUNT 3.68 X10'6 (4.70-6.10); RED CELL DISTRIBUTION WIDTH 22.2 % (11.5-14.5); WHITE BLOOD COUNT 8.4 X10'3 (4.5-11.0)
[2021-10-11 15:37] LABS: APTT 33 SECONDS (22-32)
[2021-10-11 15:38] LABS: ALANINE AMINOTRANSFERASE 19 U/L (12-78); ALBUMIN 2.9 G/DL (3.4-5.0); ALKALINE PHOSPHATASE 45 IU/L (46-116); ANION GAP 10 (8-16); ASPARTATE AMINO TRANSFERASE 82 U/L (10-37); BLOOD UREA NITROGEN 12 MG/DL (7-18); BUN/CREATININE RATIO 13.6 (5.4-32.0); CALCIUM 7.9 MG/DL (8.5-10.1); CHLORIDE 112 MMOL/L (99-107); CREATININE 0.88 MG/DL (0.60-1.10); GLUCOSE 94 MG/DL (70-104); MAGNESIUM 3.6 MG/DL (1.5-2.4); PHOSPHORUS 1.7 MG/DL (2.3-4.5); SODIUM 148 MMOL/L (135-145); TOTAL CARBON DIOXIDE 25.9 MMOL/L (24-32); TOTAL PROTEIN 5.7 G/DL (6.4-8.2); eGFR > 90 ML/MIN
[2021-10-11 15:40] LABS: POTASSIUM 3.8 MMOL/L (3.5-5.1)
[2021-10-11] MEDS: ROPIVAcaine 0.2%/PF PUMP/bolus 545 ML ERECSPINPL SCH ×2 (15:43)
[2021-10-11 15:45] LABS: ABG BASE EXCESS -2.5 mmol/L (-2.0-2.0); ABG HCO3 22.5 mmol/L (22.0-26.0); ABG OXYGEN SATURATION 98.6 % (94-97); ABG PCO2 (T) 37.8 mmHg (35.0-48.0); ABG PO2 (T) 155.2 mmHg (75.0-100.0); FMetHb 0.4 % (0.0-1.5); FO2Hb 98.2 % (94-97); PEEP 5 cm H2O; RESPIRATORY RATE 10 b/min; TIDAL VOLUME 650 mL; TOTAL HEMOGLOBIN 11.6 G/dl (14.0-18.0)
[2021-10-11] MEDS ORDERED: ceFAZolin/D5W- 1GM premix 50 ML IV SCH (16:00)
[2021-10-11 16:09] LABS: ANISOCYTOSIS 3+; HYPOCHROMASIA 1+; PLATELET ESTIMATE DECREASED; TOTAL CELLS COUNTED 100
[2021-10-11 16:10] LABS: TARGET CELLS 1+
[2021-10-11 16:11] LABS: POLYCHROMASIA FEW
[2021-10-11] MEDS: potassium Cl 20mEq/100mL bag 100 ML IV PRN ×2 (16:15→17:12)
[2021-10-11] MEDS: morphine 4 MG/ML inj SYRINge IV PRN ×4 (16:16→20:27)
[2021-10-11] MEDS: HYDROcodone/acetaminophen 10/325mg tab PO PRN (19:24)
[2021-10-11] MEDS: mupirocin 2% ointment 22GM NS SCH (20:00)
[2021-10-11] MEDS: sennosides/docusate sodium tablet PO SCH (20:00)
[2021-10-11] MEDS: gabapentin 300mg capsule PO SCH (20:27)
[2021-10-11] MEDS: atorvastatin 10mg tablet PO SCH (20:59)
[2021-10-11 21:24] LABS: BASOPHILS % (AUTO) 0 % (0-1); EOSINOPHILS % (AUTO) 0 % (0-6); HEMATOCRIT 32.7 % (42.0-52.0); HEMOGLOBIN 10.6 g/dl (14.0-17.9); LYMPHOCYTES # (AUTO) 0.4 X10'3 (1.1-4.8); LYMPHOCYTES % (AUTO) 4.1 % (21-51); MEAN CORPUSCULAR HEMOGLOBIN 30.1 PG (27.0-31.0); MEAN CORPUSCULAR HGB CONC 32.5 g/dL (33.0-36.5); MEAN CORPUSCULAR VOLUME 92.7 FL (78-98); MEAN PLATELET VOLUME 9.8 FL (7.4-10.4); MONOCYTES # (AUTO) 0.7 X10'3 (0-0.9); MONOCYTES % (AUTO) 7.1 % (2-12); NEUTROPHILS # (AUTO) 8.1 X10'3 (1.8-7.7); NEUTROPHILS % (AUTO) 88.8 % (42-75); PLATELET COUNT 123 X10'3 (140-440); RED BLOOD COUNT 3.52 X10'6 (4.70-6.10); RED CELL DISTRIBUTION WIDTH 22.7 % (11.5-14.5); WHITE BLOOD COUNT 9.2 X10'3 (4.5-11.0)
[2021-10-11] MEDS: ketorolac tromethamine 15mg/ml inj. IV PRN (21:38)
[2021-10-11 21:39] LABS: ANION GAP 13 (8-16); BLOOD UREA NITROGEN 13 MG/DL (7-18); BUN/CREATININE RATIO 12.5 (5.4-32.0); CALCIUM 7.7 MG/DL (8.5-10.1); CHLORIDE 110 MMOL/L (99-107); CREATININE 1.04 MG/DL (0.60-1.10); GLUCOSE 205 MG/DL (70-104); MAGNESIUM 2.7 MG/DL (1.5-2.4); POTASSIUM 4.7 MMOL/L (3.5-5.1); SODIUM 144 MMOL/L (135-145); TOTAL CARBON DIOXIDE 21.4 MMOL/L (24-32); eGFR 75 ML/MIN
[2021-10-11 23:31] LABS: ABG BASE EXCESS -4.5 mmol/L (-2.0-2.0); ABG HCO3 21.8 mmol/L (22.0-26.0); ABG OXYGEN SATURATION 90.9 % (94-97); ABG PCO2 (T) 44.4 mmHg (35.0-48.0); ABG PO2 (T) 64.7 mmHg (75.0-100.0); FCOHb 0.5 % (0.0-3.9); FLOW 15 L/min; FMetHb 0.3 % (0.0-1.5); FO2Hb 90.2 % (94-97); PATIENT TEMPERATURE 36.6; TOTAL HEMOGLOBIN 11.8 G/dl (14.0-18.0)
[2021-10-12] VITALS (24 sets, daily range): BP systolic 94–128; BP diastolic 57–93
[2021-10-12 03:26] LABS: BASOPHILS % (AUTO) 0.1 % (0-1); EOSINOPHILS % (AUTO) 0 % (0-6); HEMATOCRIT 32.3 % (42.0-52.0); HEMOGLOBIN 10.6 g/dl (14.0-17.9); LYMPHOCYTES # (AUTO) 0.6 X10'3 (1.1-4.8); LYMPHOCYTES % (AUTO) 4.1 % (21-51); MEAN CORPUSCULAR HEMOGLOBIN 30.2 PG (27.0-31.0); MEAN CORPUSCULAR HGB CONC 32.7 g/dL (33.0-36.5); MEAN CORPUSCULAR VOLUME 92.4 FL (78-98); MEAN PLATELET VOLUME 9.9 FL (7.4-10.4); MONOCYTES # (AUTO) 2.1 X10'3 (0-0.9); MONOCYTES % (AUTO) 14.6 % (2-12); NEUTROPHILS # (AUTO) 11.6 X10'3 (1.8-7.7); NEUTROPHILS % (AUTO) 81.2 % (42-75); PLATELET COUNT 138 X10'3 (140-440); RED CELL DISTRIBUTION WIDTH 22.4 % (11.5-14.5); WHITE BLOOD COUNT 14.3 X10'3 (4.5-11.0)
[2021-10-12 03:41] LABS: APTT 28 SECONDS (22-32)
[2021-10-12 03:42] LABS: ALANINE AMINOTRANSFERASE 23 U/L (12-78); ALBUMIN 3.5 G/DL (3.4-5.0); ALBUMIN/GLOBULIN RATIO 1.1 (1.1-1.5); ALKALINE PHOSPHATASE 47 IU/L (46-116); ANION GAP 7 (8-16); ASPARTATE AMINO TRANSFERASE 79 U/L (10-37); BILIRUBIN,TOTAL 0.6 MG/DL (0.1-1.0); BLOOD UREA NITROGEN 18 MG/DL (7-18); BUN/CREATININE RATIO 18.4 (5.4-32.0); CALCIUM 7.8 MG/DL (8.5-10.1); CHLORIDE 107 MMOL/L (99-107); CREATININE 0.98 MG/DL (0.60-1.10); GLUCOSE 136 MG/DL (70-104); MAGNESIUM 2.6 MG/DL (1.5-2.4); PHOSPHORUS 6.1 MG/DL (2.3-4.5); SODIUM 142 MMOL/L (135-145); TOTAL CARBON DIOXIDE 27.7 MMOL/L (24-32); TOTAL PROTEIN 6.7 G/DL (6.4-8.2); eGFR 80 ML/MIN
[2021-10-12 03:59] LABS: ANISOCYTOSIS 3+; PLATELET ESTIMATE DECREASED; TOTAL CELLS COUNTED 100
[2021-10-12 04:03] LABS: LARGE PLATELETS FEW; POLYCHROMASIA FEW
[2021-10-12 04:04] LABS: TARGET CELLS 1+
[2021-10-12] MEDS: HYDROcodone/acetaminophen 10/325mg tab PO PRN ×5 (05:52→23:46)
[2021-10-12] MEDS: morphine 4 MG/ML inj SYRINge IV PRN ×4 (05:53→21:54)
--- NOTE | 2021-10-12 06:33 | NUR ---
Problems reprioritized. Patient report given, questions answered & plan of care reviewed with NELSON SANDOVAL.
[2021-10-12] MEDS: ketorolac tromethamine 15mg/ml inj. IV PRN (07:13)
[2021-10-12] MEDS: CefTRIAXone 2gm/D5W 50ml BAG 50 ML IV SCH (07:36)
[2021-10-12] MEDS: vancomycin/NS 1 GM ADD-VANTAGE 250 ML IV SCH ×2 (07:36→20:48)
[2021-10-12] MEDS: aspirin 81mg tab.chew PO SCH (07:37)
[2021-10-12] MEDS: thiamine 100mg tablet PO SCH (07:37)
[2021-10-12] MEDS: sennosides/docusate sodium tablet PO SCH ×2 (07:37→20:49)
[2021-10-12] MEDS: gabapentin 300mg capsule PO SCH ×3 (07:38→20:49)
[2021-10-12] MEDS ORDERED: metoprolol tartrate 12.5mg (1/2 tablet) PO SCH (08:00)
--- NOTE | 2021-10-12 09:49 | NUR ---
Nutrition consult: Pt POD #1 s/p AVR and MVR. Pt would benefit from nutrition therapy education once stable. Will continue to follow. Addendum: 10/12/21 at [address] Amended: Links added.
[2021-10-12] MEDS: folic acid/vitamin B complex w/vitamin C 0.8mg tablet PO SCH (10:00)
[2021-10-12] MEDS: mupirocin 2% ointment 22GM NS SCH ×2 (11:45→20:00)
[2021-10-12] MEDS: chlordiazePOXIDE 5mg capsule PO PRN ×2 (14:05→23:46)
[2021-10-12] MEDS ORDERED: MESSAGE TO PHARMACY PO ONE (17:25)
[2021-10-12] MEDS ORDERED: glucagon, human recombinant 1mg kit SUBCUT PRN (17:25)
[2021-10-12] MEDS ORDERED: dextrose 50%-water 50ml dispensing syringe IV PRN ×2 (17:25)
[2021-10-12] MEDS ORDERED: DEXTROSE 15 GM of carb/4 tabs (each vial/BOTTLE has 4 tablets) PO PRN ×2 (17:25)
[2021-10-12] MEDS: insulin Lispro (HumaLOG) vial - multi-dose SQ SCH ×2 (18:01→20:44)
[2021-10-12] MEDS: furosemide 20 MG/2 ML vial IV SCH (20:39)
[2021-10-12] MEDS: insulin glargine (Lantus) pen - multi-dose SQ SCH (20:40)
[2021-10-12] MEDS: atorvastatin 10mg tablet PO SCH (20:49)
[2021-10-13] VITALS (23 sets, daily range): BP systolic 100–145; BP diastolic 46–101
[2021-10-13 03:27] LABS: BASOPHILS % (AUTO) 0 % (0-1); EOSINOPHILS % (AUTO) 0 % (0-6); HEMATOCRIT 29.8 % (42.0-52.0); HEMOGLOBIN 9.8 g/dl (14.0-17.9); LYMPHOCYTES % (AUTO) 6.3 % (21-51); MEAN CORPUSCULAR HEMOGLOBIN 30.8 PG (27.0-31.0); MEAN CORPUSCULAR HGB CONC 32.9 g/dL (33.0-36.5); MEAN CORPUSCULAR VOLUME 93.4 FL (78-98); MEAN PLATELET VOLUME 10.4 FL (7.4-10.4); MONOCYTES # (AUTO) 2.1 X10'3 (0-0.9); MONOCYTES % (AUTO) 13.1 % (2-12); NEUTROPHILS # (AUTO) 12.7 X10'3 (1.8-7.7); NEUTROPHILS % (AUTO) 80.6 % (42-75); PLATELET COUNT 134 X10'3 (140-440); RED BLOOD COUNT 3.19 X10'6 (4.70-6.10); WHITE BLOOD COUNT 15.7 X10'3 (4.5-11.0)
[2021-10-13 03:34] LABS: ALBUMIN 3.1 G/DL (3.4-5.0); ANION GAP 7 (8-16); BLOOD UREA NITROGEN 19 MG/DL (7-18); BUN/CREATININE RATIO 23.2 (5.4-32.0); CALCIUM 7.9 MG/DL (8.5-10.1); CHLORIDE 100 MMOL/L (99-107); CREATININE 0.82 MG/DL (0.60-1.10); GLUCOSE 64 MG/DL (70-104); MAGNESIUM 2.2 MG/DL (1.5-2.4); PHOSPHORUS 3.9 MG/DL (2.3-4.5); POTASSIUM 5.7 MMOL/L (3.5-5.1); SODIUM 135 MMOL/L (135-145); eGFR > 90 ML/MIN
[2021-10-13] MEDS: HYDROcodone/acetaminophen 10/325mg tab PO PRN ×5 (03:43→22:22)
--- NOTE | 2021-10-13 03:53 | NUR ---
Glucose 64 on am labs. Pt asymptomatic. Apple juice given. Will recheck blood sugar in 15 minutes.
[2021-10-13 04:28] LABS: ANISOCYTOSIS 3+; PLATELET ESTIMATE DECREASED; TOTAL CELLS COUNTED 100
[2021-10-13 04:29] LABS: ELLIPTOCYTES FEW; HYPOCHROMASIA 1+; POLYCHROMASIA FEW
[2021-10-13 04:30] LABS: LARGE PLATELETS FEW; TARGET CELLS 1+
[2021-10-13] MEDS: morphine 4 MG/ML inj SYRINge IV PRN ×2 (05:49→15:19)
--- NOTE | 2021-10-13 06:38 | NUR ---
1800Got report from off going RN Gopi. Pt resting in bed. Pt having ongoing pain. At times, pt hardly able to open eyes and easily falls back to sleep and minimal respirations. Pt got morphine and norco and Q ball infusion increased and bolus given. Librium also given. Some output noted from chest tubes. D50 given per protocol for low blood sugar. Pt's blood sugar came up and snack given to pt. 0600Report given to oncoming RN Anna. Pt in no acute distress at time of handoff.
[2021-10-13] MEDS: aspirin 81mg tab.chew PO SCH (08:29)
[2021-10-13] MEDS: folic acid/vitamin B complex w/vitamin C 0.8mg tablet PO SCH (08:30)
[2021-10-13] MEDS: furosemide 20 MG/2 ML vial IV SCH ×2 (08:30→20:22)
[2021-10-13] MEDS: thiamine 100mg tablet PO SCH (08:30)
[2021-10-13] MEDS: pantoprazole 40mg Tablet.DR PO SCH (08:30)
[2021-10-13] MEDS: gabapentin 300mg capsule PO SCH ×2 (08:32→13:19)
[2021-10-13] MEDS: sennosides/docusate sodium tablet PO SCH ×2 (08:32→20:22)
[2021-10-13] MEDS: mupirocin 2% ointment 22GM NS SCH (08:59)
[2021-10-13] MEDS: CefTRIAXone 2gm/D5W 50ml BAG 50 ML IV SCH (08:59)
[2021-10-13] MEDS: chlordiazePOXIDE 5mg capsule PO PRN ×2 (10:46→20:22)
[2021-10-13] MEDS: JUVEN Smoothie Arginine/Glut./Ca2+Bmb (Juven 19.3pkt) 240ml cup PO SCH (13:03)
[2021-10-13] MEDS: insulin Lispro (HumaLOG) vial - multi-dose SQ SCH (13:20)
[2021-10-13] MEDS: ROPIVAcaine 0.2%/PF PUMP/bolus 545 ML ERECSPINPL SCH ×2 (14:15→14:30)
--- NOTE | 2021-10-13 17:50 | NUR ---
Pt very restless throughout the day, re-educated pt on open heart precautions. Chest tube set up per orders, output documented hourly. MD Murcia and KIN Mcdonald rounded this morning. MD Murcia turned off the external pacer with instructions to turn back on if HR<45. Buckley removed per MD Murcia request; pt due to void still, will endorse to shift foreman to bladder scan as bladder scan battery is , charging now. R IJ w/ cortis dresing peeling, tried to re-enforce with no success; cortis removed by set up and chargerJAIME Mclaughlin; central line dressing changed utilizing sterile technique. Pt BS 57 & 46 this afternoon, pt's fingers cold, not sure if accurate as pt is asymptomatic- pt eating dinner now, will recheck once pt eats dinner. Addendum: 10/13/21 at 1832 by Lilly Asif RN Problems reprioritized. Patient report given, questions answered & plan of care reviewed with JAIME BARRETT.
--- NOTE | 2021-10-13 18:30 | NUR ---
RECEIVED REPORT FROM OUTGOING NURSE. PT IS SITTING IN A CHAIR,EATING DINNER. NO SIGNS OF DISTRESS NOTED AT THE MOMENT. SR IN 60S WITH STABLE BP. EXTERNAL PACER OFF SINCE AM PER MD. CHEST TUBEX2 WITH WALL SUC. FUNCTIONING. CALL ASTORGA WITHIN REACH. WILL CONT TO MONITOR.
[2021-10-13] MEDS: atorvastatin 10mg tablet PO SCH (20:22)
[2021-10-13] MEDS: enoxaparin 30mg/0.3ml syringe SUBCUT SCH (20:23)
[2021-10-13] MEDS: insulin glargine (Lantus) pen - multi-dose SQ SCH (20:59)
[2021-10-14] VITALS (13 sets, daily range): BP systolic 109–140; BP diastolic 70–96
[2021-10-14] MEDS: morphine 4 MG/ML inj SYRINge IV PRN (00:49)
[2021-10-14] MEDS: HYDROcodone/acetaminophen 10/325mg tab PO PRN ×6 (03:20→23:25)
[2021-10-14 04:09] LABS: BASOPHILS % (AUTO) 0.1 % (0-1); EOSINOPHILS % (AUTO) 0.2 % (0-6); HEMATOCRIT 29.6 % (42.0-52.0); HEMOGLOBIN 9.6 g/dl (14.0-17.9); LYMPHOCYTES # (AUTO) 2.9 X10'3 (1.1-4.8); LYMPHOCYTES % (AUTO) 17.8 % (21-51); MEAN CORPUSCULAR HEMOGLOBIN 30.1 PG (27.0-31.0); MEAN CORPUSCULAR HGB CONC 32.5 g/dL (33.0-36.5); MEAN CORPUSCULAR VOLUME 92.7 FL (78-98); MEAN PLATELET VOLUME 10.7 FL (7.4-10.4); MONOCYTES # (AUTO) 1.9 X10'3 (0-0.9); MONOCYTES % (AUTO) 11.9 % (2-12); NEUTROPHILS # (AUTO) 11.4 X10'3 (1.8-7.7); PLATELET COUNT 143 X10'3 (140-440); RED CELL DISTRIBUTION WIDTH 21.4 % (11.5-14.5); WHITE BLOOD COUNT 16.2 X10'3 (4.5-11.0)
[2021-10-14 04:20] LABS: ANION GAP 5 (8-16); BLOOD UREA NITROGEN 18 MG/DL (7-18); BUN/CREATININE RATIO 23.1 (5.4-32.0); CHLORIDE 96 MMOL/L (99-107); CREATININE 0.78 MG/DL (0.60-1.10); GLUCOSE 109 MG/DL (70-104); PHOSPHORUS 2.8 MG/DL (2.3-4.5); POTASSIUM 4.8 MMOL/L (3.5-5.1); SODIUM 130 MMOL/L (135-145); eGFR > 90 ML/MIN
[2021-10-14 04:52] LABS: ANISOCYTOSIS 3+; HYPOCHROMASIA 1+; PLATELET ESTIMATE NORMAL; TARGET CELLS 1+; TOTAL CELLS COUNTED 100
[2021-10-14 04:53] LABS: POLYCHROMASIA FEW
--- NOTE | 2021-10-14 06:30 | NUR ---
Patient in room PCU 3022. I have received report from JAIME Farmer and had the opportunity to ask questions and assume patient care.
[2021-10-14 06:45] LABS: ACT @ 1.70 U 235 SEC (193-297); ACT @ 2.84 U 313 SEC (260-420); BASELINE ACT 134 SEC (101-148); PATIENT WEIGHT 78.0k KG
[2021-10-14] MEDS: folic acid/vitamin B complex w/vitamin C 0.8mg tablet PO SCH (07:16)
[2021-10-14] MEDS: CefTRIAXone 2gm/D5W 50ml BAG 50 ML IV SCH (07:16)
[2021-10-14] MEDS: sennosides/docusate sodium tablet PO SCH ×2 (07:17→20:00)
[2021-10-14] MEDS: thiamine 100mg tablet PO SCH (07:17)
[2021-10-14] MEDS: pantoprazole 40mg Tablet.DR PO SCH (07:17)
[2021-10-14] MEDS: furosemide 20 MG/2 ML vial IV SCH ×2 (07:18→21:16)
[2021-10-14] MEDS: enoxaparin 30mg/0.3ml syringe SUBCUT SCH ×2 (07:19→21:15)
--- NOTE | 2021-10-14 09:30 | NUR ---
Problems reprioritized. Patient report given, questions answered & plan of care reviewed with JAIME Sher. Pt transfered to telemetry unit.
--- NOTE | 2021-10-14 10:51 | NUR ---
Nutrition Consult: Pt POD #3 s/p AVR and MV repair per EMR. Pt seen by RD for written/verbal high protein diet ed post-op. Pt very fatigued during RD visit; brief verbal review w/ written diet ed and RD contact information left at bedside pt would benefit from reinforcement prior to discharge. Pt eating well majority of admit w/ double proteins BIDBD in addition to Juan José smoothie BIDBL starting WL today. Pt prefers strawberry/strawberry-banana flavors; dietary notified. Noted pt Glu 46-106mg/dl likely r/t combination of carb controlled diet and receiving 11 units Lantus last night for AM Glu [address] d/w RN regarding cancelling carb controlled restriction as no hx DM A1C 5.3% if MD agreeable. Recs: 1. Continue Heart Healthy diet as tolerated; remove carb controlled restriction no hx DM A1C 5.3% 2. Double protein BIDBD; strawberry/strawberry banana Juan José smoothie BIDBL 3. routine bowel care; 4 days constipation per EMR 4. Weekly wts 5. high protein ed verbal reinforcement once more appropriate prior to discharge Addendum: 10/14/21 at [address] Amended: Links added.
[2021-10-14] MEDS: aspirin 81mg tab.chew PO SCH (11:19)
[2021-10-14] MEDS: magnesium Cl slow-release 64mg tablet PO SCH ×2 (11:19→21:15)
[2021-10-14] MEDS: potassium Cl 20 mEq SR tablet PO SCH ×2 (11:21→20:00)
[2021-10-14] MEDS: JUVEN Smoothie Arginine/Glut./Ca2+Bmb (Juven 19.3pkt) 240ml cup PO SCH (12:30)
--- NOTE | 2021-10-14 16:23 | NUR ---
PUBLIC SERVICE REPRESENTATIVE and COMPRESSOR STATION ENGINEER not able to place PIV. Have paged PICC RN x [address] PIV so CVL can be discontinued. Continue to follow protocol maintaining CVL. As soon as PIV is placed, CVL will be d/c'd.
--- NOTE | 2021-10-14 17:40 | NUR ---
RIJ CVL discontinued, pressure held for 25 minutes , 3 packs of 10 4x4's until bleeding stopped. Pt to lay flat for 1 hour, able to sit up at 1830 if bleeding. BP after dressing applied 116/72, HR 76. Pt asymptomatic
--- NOTE | 2021-10-14 18:30 | NUR ---
Patient in room PCU 3022. I have received report from DIXIE and had the opportunity to ask questions and assume patient care.
--- NOTE | 2021-10-14 18:48 | NUR ---
Problems reprioritized. Patient report given, questions answered & plan of care reviewed with JAIME Hernandez.
[2021-10-14] MEDS ORDERED: ROPIVAcaine 0.2%/PF PUMP/bolus 545 ML ERECSPINPL SCH (19:04)
--- NOTE | 2021-10-14 20:54 | NUR ---
RAKESH HELD: POTASSIUM 4.8
[2021-10-14] MEDS: insulin glargine (Lantus) pen - multi-dose SQ SCH (21:00)
[2021-10-14] MEDS: atorvastatin 10mg tablet PO SCH (21:16)
[2021-10-14] MEDS: VANCOmycin 1250MG/NS 250ml Bag 250 ML IV SCH (21:16)
[2021-10-15 02:00] VITALS: BP 95/73
[2021-10-15] MEDS: HYDROcodone/acetaminophen 10/325mg tab PO PRN ×2 (04:13→08:25)
[2021-10-15 06:00] VITALS: BP 122/81
--- NOTE | 2021-10-15 06:45 | NUR ---
Problems reprioritized. Patient report given, questions answered & plan of care reviewed with SHANNAN.
[2021-10-15 07:06] LABS: BASOPHILS % (AUTO) 0.3 % (0-1); EOSINOPHILS # (AUTO) 0.1 X10'3 (0-0.9); EOSINOPHILS % (AUTO) 0.5 % (0-6); HEMATOCRIT 30.3 % (42.0-52.0); LYMPHOCYTES # (AUTO) 3.3 X10'3 (1.1-4.8); LYMPHOCYTES % (AUTO) 26.8 % (21-51); MEAN CORPUSCULAR HEMOGLOBIN 30.6 PG (27.0-31.0); MEAN CORPUSCULAR HGB CONC 32.9 g/dL (33.0-36.5); MEAN CORPUSCULAR VOLUME 92.9 FL (78-98); MEAN PLATELET VOLUME 10.5 FL (7.4-10.4); MONOCYTES # (AUTO) 1.7 X10'3 (0-0.9); NEUTROPHILS # (AUTO) 7.1 X10'3 (1.8-7.7); NEUTROPHILS % (AUTO) 58.4 % (42-75); PLATELET COUNT 163 X10'3 (140-440); RED BLOOD COUNT 3.26 X10'6 (4.70-6.10); RED CELL DISTRIBUTION WIDTH 21.5 % (11.5-14.5); WHITE BLOOD COUNT 12.1 X10'3 (4.5-11.0)
[2021-10-15] MEDS: JUVEN Smoothie Arginine/Glut./Ca2+Bmb (Juven 19.3pkt) 240ml cup PO SCH ×2 (07:30→12:30)
[2021-10-15 07:35] LABS: ALBUMIN 2.8 G/DL (3.4-5.0); ANION GAP 9 (8-16); BLOOD UREA NITROGEN 15 MG/DL (7-18); BUN/CREATININE RATIO 18.5 (5.4-32.0); CHLORIDE 99 MMOL/L (99-107); CREATININE 0.81 MG/DL (0.60-1.10); GLUCOSE 82 MG/DL (70-104); POTASSIUM 4.6 MMOL/L (3.5-5.1); SODIUM 135 MMOL/L (135-145); TOTAL CARBON DIOXIDE 27.5 MMOL/L (24-32); eGFR > 90 ML/MIN
[2021-10-15] MEDS: CefTRIAXone 2gm/D5W 50ml BAG 50 ML IV SCH (08:23)
[2021-10-15] MEDS: VANCOmycin 1250MG/NS 250ml Bag 250 ML IV SCH ×2 (08:23→21:23)
[2021-10-15] MEDS: enoxaparin 30mg/0.3ml syringe SUBCUT SCH ×2 (08:23→21:27)
[2021-10-15] MEDS: thiamine 100mg tablet PO SCH (08:24)
[2021-10-15] MEDS: pantoprazole 40mg Tablet.DR PO SCH (08:24)
[2021-10-15] MEDS: sennosides/docusate sodium tablet PO SCH ×2 (08:24→20:00)
[2021-10-15] MEDS: aspirin 81mg tab.chew PO SCH (08:24)
[2021-10-15] MEDS: furosemide 20 MG/2 ML vial IV SCH (08:24)
[2021-10-15] MEDS: folic acid/vitamin B complex w/vitamin C 0.8mg tablet PO SCH (08:24)
[2021-10-15] MEDS: magnesium Cl slow-release 64mg tablet PO SCH ×2 (08:24→21:24)
[2021-10-15] MEDS: potassium Cl 20 mEq SR tablet PO SCH ×2 (08:24→21:24)
[2021-10-15] MEDS: chlordiazePOXIDE 5mg capsule PO PRN (08:27)
[2021-10-15 11:00] VITALS: BP 110/73
--- NOTE | 2021-10-15 11:48 | NUR ---
ORDERS TO HOLD TOMORROW'S MORNING DOSE OF LOVENOX PUT IN PER DR. GRISSOM.
[2021-10-15] MEDS: oxyCODONE/APAP 10/325mg tablet PO PRN ×3 (11:51→21:26)
[2021-10-15] MEDS ORDERED: chlordiazePOXIDE 5mg capsule PO PRN (12:00)
[2021-10-15 15:00] VITALS: BP 124/68
[2021-10-15] MEDS: lactobacillus rhamnosus 10,000 MMU CELLS/CAPSULE PO SCH (16:33)
[2021-10-15 18:00] VITALS: BP 137/80
[2021-10-15] MEDS: insulin glargine (Lantus) pen - multi-dose SQ SCH (18:40)
[2021-10-15] MEDS: atorvastatin 10mg tablet PO SCH (21:26)
[2021-10-15 22:00] VITALS: BP 124/83
[2021-10-16 02:00] VITALS: BP 102/50
[2021-10-16] MEDS: oxyCODONE/APAP 10/325mg tablet PO PRN ×3 (04:16→12:51)
[2021-10-16 06:00] VITALS: BP 106/59
[2021-10-16] MEDS: JUVEN Smoothie Arginine/Glut./Ca2+Bmb (Juven 19.3pkt) 240ml cup PO SCH (07:30)
[2021-10-16] MEDS ORDERED: VANCOMYCIN LEVEL IV ONE (07:30)
[2021-10-16 07:40] LABS: BASOPHILS # (AUTO) 0.1 X10'3 (0-0.2); BASOPHILS % (AUTO) 0.6 % (0-1); EOSINOPHILS # (AUTO) 0.1 X10'3 (0-0.9); HEMATOCRIT 29.4 % (42.0-52.0); HEMOGLOBIN 9.9 g/dl (14.0-17.9); LYMPHOCYTES # (AUTO) 2.3 X10'3 (1.1-4.8); LYMPHOCYTES % (AUTO) 21.2 % (21-51); MEAN CORPUSCULAR HEMOGLOBIN 31.3 PG (27.0-31.0); MEAN CORPUSCULAR HGB CONC 33.7 g/dL (33.0-36.5); MEAN CORPUSCULAR VOLUME 92.9 FL (78-98); MEAN PLATELET VOLUME 9.5 FL (7.4-10.4); MONOCYTES # (AUTO) 1.5 X10'3 (0-0.9); MONOCYTES % (AUTO) 13.9 % (2-12); NEUTROPHILS # (AUTO) 6.9 X10'3 (1.8-7.7); NEUTROPHILS % (AUTO) 63.3 % (42-75); PLATELET COUNT 198 X10'3 (140-440); RED BLOOD COUNT 3.17 X10'6 (4.70-6.10); RED CELL DISTRIBUTION WIDTH 21.8 % (11.5-14.5); WHITE BLOOD COUNT 10.9 X10'3 (4.5-11.0)
[2021-10-16 07:54] LABS: ALBUMIN 2.6 G/DL (3.4-5.0); ANION GAP 9 (8-16); BLOOD UREA NITROGEN 13 MG/DL (7-18); BUN/CREATININE RATIO 15.7 (5.4-32.0); CALCIUM 8.3 MG/DL (8.5-10.1); CHLORIDE 102 MMOL/L (99-107); CREATININE 0.83 MG/DL (0.60-1.10); GLUCOSE 134 MG/DL (70-104); SODIUM 138 MMOL/L (135-145); TOTAL CARBON DIOXIDE 27.2 MMOL/L (24-32); VANCOMYCIN,TROUGH 18.5 UG/ML (6.0-14.0); eGFR > 90 ML/MIN
[2021-10-16] MEDS ORDERED: furosemide 20MG tablet PO SCH (08:00)
[2021-10-16] MEDS: sennosides/docusate sodium tablet PO SCH (08:00)
[2021-10-16 08:08] LABS: BURR CELLS FEW; POLYCHROMASIA FEW; TARGET CELLS FEW
[2021-10-16 08:09] LABS: ANISOCYTOSIS 3+; PLATELET ESTIMATE NORMAL
[2021-10-16 08:10] LABS: LARGE PLATELETS FEW
[2021-10-16] MEDS: folic acid/vitamin B complex w/vitamin C 0.8mg tablet PO SCH (08:25)
[2021-10-16] MEDS: VANCOmycin 1250MG/NS 250ml Bag 250 ML IV SCH (08:25)
[2021-10-16] MEDS: pantoprazole 40mg Tablet.DR PO SCH (08:25)
[2021-10-16] MEDS: potassium Cl 20 mEq SR tablet PO SCH (08:25)
[2021-10-16] MEDS: CefTRIAXone 2gm/D5W 50ml BAG 50 ML IV SCH (08:25)
[2021-10-16] MEDS: lactobacillus rhamnosus 10,000 MMU CELLS/CAPSULE PO SCH (08:26)
[2021-10-16] MEDS: aspirin 81mg tab.chew PO SCH (08:26)
[2021-10-16] MEDS: magnesium Cl slow-release 64mg tablet PO SCH (08:27)
[2021-10-16] MEDS: thiamine 100mg tablet PO SCH (08:27)
[2021-10-16 12:45] VITALS: BP 126/90
--- NOTE | 2021-10-16 13:00 | NUR ---
Patient ready to discharge to [facility]. Cardiology removed pacer wires and on-q pump, dressings placed to cover. Midline chest dressing removed and md instructed to leave open to air. Patient aox4, vitals stable, medicated for pain. Report given to Gm SANDOVAL. Patient sent with all belongings and his midline in place.
[2021-10-16] MEDS ORDERED: carVEDilol 3.125mg tablet PO SCH (20:00)
[2021-10-17] MEDS ORDERED: enoxaparin 30mg/0.3ml syringe SUBCUT SCH (08:00)
--- NOTE | 2021-10-23 11:34 | NUR ---
Case Management DC follow up:Patient discharge to a intermediate care facility : [facility]. Addendum: 10/23/21 at 1141 by Deja De La Cruz RN [facility].
== END 2021-10-16 12:57 | DRG 853 ==
LOC: ER 14:15 → ED HOLD 17:01 → EDBEDREQ 22:09 → PCU 3S 10-07 00:49 → CICU 2S 10-11 08:00 → PCU 3S 10-14 10:30
PROVIDERS: ADMIT Family Medicine; ATTEND Family Medicine
PROC: BW251ZZ Computerized Tomography (CT Scan) of Chest, Abdomen and Pelvis using Low Osmolar Contrast (ICD-10-PCS; 2021-10-07)
PROC: 02UG0JZ Supplement Mitral Valve with Synthetic Substitute, Open Approach (ICD-10-PCS; 2021-10-11)
PROC: 02BG0ZZ Excision of Mitral Valve, Open Approach (ICD-10-PCS; 2021-10-11)
PROC: 5A1221Z Performance of Cardiac Output, Continuous (ICD-10-PCS; 2021-10-11)
PROC: B24DZZ4 Ultrasonography of Pediatric Heart, Transesophageal (ICD-10-PCS; 2021-10-11)
PROC: 5A2204Z Restoration of Cardiac Rhythm, Single (ICD-10-PCS; 2021-10-11)
PROC: 02L70ZK Occlusion of Left Atrial Appendage, Open Approach (ICD-10-PCS; 2021-10-11)
PROC: 30233N1 Transfusion of Nonautologous Red Blood Cells into Peripheral Vein, Percutaneous Approach (ICD-10-PCS; 2021-10-11)
PROC: 02HV33Z Insertion of Infusion Device into Superior Vena Cava, Percutaneous Approach (ICD-10-PCS; 2021-10-11)
PROC: B548ZZA Ultrasonography of Superior Vena Cava, Guidance (ICD-10-PCS; 2021-10-11)
PROC: 03HY32Z Insertion of Monitoring Device into Upper Artery, Percutaneous Approach (ICD-10-PCS; 2021-10-11)
PROC: 4A133B1 Monitoring of Arterial Pressure, Peripheral, Percutaneous Approach (ICD-10-PCS; 2021-10-11)
PROC: 4A133J1 Monitoring of Arterial Pulse, Peripheral, Percutaneous Approach (ICD-10-PCS; 2021-10-11)
PROC: 02RF08Z Replacement of Aortic Valve with Zooplastic Tissue, Open Approach (ICD-10-PCS; principal; 2021-10-11 07:00)
DX: A41.9 Sepsis, unspecified organism (principal); I33.0 Acute and subacute infective endocarditis; I49.01 Ventricular fibrillation; E46 Unspecified protein-calorie malnutrition; Q23.1 Congenital insufficiency of aortic valve; F15.10 Other stimulant abuse, uncomplicated; Z20.822 Contact with and (suspected) exposure to COVID-19; F10.20 Alcohol dependence, uncomplicated; R60.9 Edema, unspecified; Z66 Do not resuscitate; R03.1 Nonspecific low blood-pressure reading; E87.5 Hyperkalemia; E87.6 Hypokalemia; F12.90 Cannabis use, unspecified, uncomplicated; F17.210 Nicotine dependence, cigarettes, uncomplicated; I11.0 Hypertensive heart disease with heart failure; I50.9 Heart failure, unspecified; Z59.00 Homelessness unspecified; Z87.828 Personal history of other (healed) physical injury and trauma; Z90.81 Acquired absence of spleen; Z91.19 Patient's noncompliance with other medical treatment and regimen; Z68.25 Body mass index [BMI] 25.0-25.9, adult; Z71.51 Drug abuse counseling and surveillance of drug abuser
CPT/HCPCS: 36415; 36430; 36600; 71045; 71046; 71260; 74177; 76376; 80048; 80053; 80202; 80305; 81003; 82330; 82435; 82803; 82947; 82948; 83036; 83605; 83735; 84100; 84132; 84145; 84295; 84484; 85007; 85008; 85018; 85025; 85347; 85384; 85610; 85651; 85730; 86885; 86900; 86901; 86920; 87040; 87070; 87075; 87081; 87102; 87811; 88305; 88311; 93005; 93306; 93312; 93325; 93880; 94002; 94060; 94760; 96374; 96375; 97110; 97116; 97161; 97530; 99291; A4333; A4615; A4618; A6209; A6222; A6223; A6258; A6402; A6449; A7000; A7048; C1751; G0378; J0690; J0696; J1170; J1630; J1644; J1650; J1815; J1885; J1940; J2060; J2150; J2250; J2270; J2405; J2720; J2795; J2930; J3010; J3370; J3411; J3480; J3490; J7030; J7040; J7050; J7120; P9016; P9045; P9047; Q0163; Q9967